=== PATIENT | female | born 1975 | race Caucasian/White ===

== ENCOUNTER → 2017-11-25 | Outpatient (CLI) | payer BC ==
[2017-11-25 13:31] LABS: ABSOLUTE EOSINOPHILS # (AUTO) 0.1 10^3/uL (0.0-0.6); ABSOLUTE LYMPHOCYTES (AUTO) 1.3 10^3/uL (0.5-4.7); ABSOLUTE MONOCYTES (AUTO) 0.4 10^3/uL (0.1-1.4); ABSOLUTE NEUT (AUTO) 2.4 10^3/uL (1.7-8.2); EOSINOPHILS % (AUTO) 2.6 % (0-6); HEMATOCRIT 40.5 % (36.0-47.0); HEMOGLOBIN 13.8 g/dL (12.0-15.5); LYMPHOCYTES % (AUTO) 30.5 % (13-45); MEAN CORPUSCULAR HEMOGLOBIN 29.4 pg (27.0-33.4); MEAN CORPUSCULAR VOLUME 87 fl (80-97); MONOCYTES % (AUTO) 8.8 % (3-13); PLATELET COUNT 347 10^3/uL (150-450); RED BLOOD COUNT 4.68 10^6/uL (3.72-5.28); RED CELL DISTRIBUTION WIDTH 14.9 % (11.5-14.0); SEGMENTED NEUTROPHILS % (AUTO) 57.1 % (42-78); TOTAL CELLS COUNTED % (AUTO) 100 %; WHITE BLOOD COUNT 4.3 10^3/uL (4.0-10.5)
[2017-11-25 14:16] LABS: ALANINE AMINOTRANSFERASE 12 U/L (9-52); ALBUMIN 3.9 g/dL (3.5-5.0); ALKALINE PHOSPHATASE 57 U/L (38-126); ANION GAP 12 (5-19); ASPARTATE AMINO TRANSFERASE 15 U/L (14-36); BILIRUBIN,DIRECT 0.3 mg/dL (0.0-0.4); BILIRUBIN,TOTAL 0.5 mg/dL (0.2-1.3); BLOOD UREA NITROGEN 10 mg/dL (7-20); CALCIUM 9.1 mg/dL (8.4-10.2); CARBON DIOXIDE 24 mmol/L (22-30); CHLORIDE 107 mmol/L (98-107); CHOLESTEROL 150.76 mg/dL (0-200); GLUCOSE 85 mg/dL (75-110); POTASSIUM 4.1 mmol/L (3.6-5.0); SODIUM 142.7 mmol/L (137-145); TRIGLYCERIDES 75 mg/dL (<150)
[2017-11-25 14:27] LABS: DIRECT LDL 85 mg/dL (<100)
== END ==
LOC: OD 11:42
PROVIDERS: ATTEND Internal Medicine
DX: J31.0 Chronic rhinitis (principal); R09.81 Nasal congestion; N95.1 Menopausal and female climacteric states
CPT/HCPCS: 36415; 80053; 80061; 82672; 83001; 83002; 84443; 85025

== ENCOUNTER → 2018-01-01 | Outpatient (CLI) | payer BC ==
--- NOTE | 2018-01-01 10:29 | RADIOLOGY REPORT (SQ) ---
EXAM DESCRIPTION: HIP RIGHT AP/LATERAL COMPLETED DATE/TIME: 01/01/2018 10:22 am REASON FOR STUDY: DJD S60.10XA CONTUSION OF UNSP FINGER WITH DAMAGE TO NAIL, INIT Right hip pain COMPARISON: None. NUMBER OF VIEWS: Two views. TECHNIQUE: AP and frog-leg view of the right hip. LIMITATIONS: None. FINDINGS: MINERALIZATION: Normal. RIGHT HIP: No fracture or dislocation. No worrisome bone lesions. No contour deformity. No joint sp ekaterina narrowing. OPPOSITE HIP: No fracture or dislocation. No worrisome bone lesions. SOFT TISSUES: No findings. OTHER: No other significant finding. IMPRESSION: NEGATIVE STUDY OF THE RIGHT HIP. NO EXPLANATION FOR PAIN. TECHNICAL DOCUMENTATION: JOB ID: [id number] [employer]- All Rights Reserved Reading location - IP/workstation name: [email or web address]
--- NOTE | 2018-01-01 10:43 | RADIOLOGY REPORT (SQ) ---
EXAM DESCRIPTION: HAND LEFT 3 VIEWS COMPLETED DATE/TIME: 01/01/2018 10:22 am REASON FOR STUDY: DJD,CONTUSION OF UNSP FINGER WITH DAMAGE TO NAIL, INIT ENCNTR S60.10XA CONTUSION OF UNSP FINGER WITH DAMAGE TO NAIL, INIT COMPARISON: None. EXAM PARAMETERS: NUMBER OF VIEWS: Three views. TECHNIQUE: AP, lateral and oblique radiographic images acquired of the left hand. LIMITATIONS: None. FINDINGS: MINERALIZATION: Normal. BONES: No acute fracture or dislocation. No worrisome bone lesions. JOINTS: No effusions. SOFT TISSUES: No soft tissue swelling. No foreign body. OTHER: No other significant finding. IMPRESSION: NEGATIVE STUDY OF THE LEFT HAND. NO RADIOGRAPHIC EVIDENCE OF ACUTE INJURY. TECHNICAL DOCUMENTATION: JOB ID: [id number] [employer]- All Rights Reserved Reading location - IP/workstation name: [email or web address]
== END ==
LOC: OD 10:04
PROVIDERS: ATTEND Internal Medicine
DX: S60.10XA Contusion of unspecified finger with damage to nail, initial encounter (principal); X58.XXXA Exposure to other specified factors, initial encounter; M19.90 Unspecified osteoarthritis, unspecified site

== ENCOUNTER → 2018-01-28 | Outpatient (CLI) | payer BC ==
--- NOTE | 2018-01-28 10:02 | RADIOLOGY REPORT (SQ) ---
EXAM DESCRIPTION: CT FACIAL AREA WITHOUT COMPLETED DATE/TIME: 01/28/2018 9:34 am REASON FOR STUDY: J31.0 CHRONIC RHINITIS J31.0 CHRONIC RHINITIS COMPARISON: None. TECHNIQUE: Noncontrasted images through the facial bones and orbits windowed for bone and soft tissu e. Additional coronal and sagittal reconstructed images reviewed. All images stored on PACS. All CT scanners at this facility use dose modulation, iterative reconstruction, and/or weight based d osing when appropriate to reduce radiation dose to as low as reasonably achievable (ALARA). [facility]: Dose Right [facility]: CareDose [facility]: Dose Right [facility]: Teradose 4D [facility]: Family Pet RADIATION DOSE: 44 mGy. LIMITATIONS: None. FINDINGS: FACIAL BONES: No fracture or bone lesion. ORBITS: Intact. No fracture. Symmetric intact globes and retroorbital soft tissues. PARANASAL SINUSES: There is mucous membrane thickening along the floor of the right maxillary sinus. Mucous membrane thickening narrows the outlet of the right maxillary sinus best shown on coronal penelope ges 18 through 20. Remainder of the paranasal sinuses are clear. Left maxillary sinus outlet patent. Mild rightward na neal septal deviation. No nasal polyps. SOFT TISSUES: No mass or edema. INFERIOR BRAIN: Limited view. No acute findings. OTHER: No other significant finding. IMPRESSION: Mucous membrane thickening floor right maxillary sinus with mild narrowing of the right maxillary sinus outlet from mucous membrane thickening. No air-fluid level suggest acute sinusitis a t time TECHNICAL DOCUMENTATION: JOB ID: [id number] Quality ID # [id number]: Final reports with documentation of one or more dose reduction techniques (e.g., Au tomated exposure control, adjustment of the mA and/or kV according to patient size, use of iterative reconstruction technique) 2010 [employer]- All Rights Reserved Reading location - IP/workstation name: [email or web address]
== END ==
LOC: RAD 09:13
PROVIDERS: ATTEND Internal Medicine
DX: J31.0 Chronic rhinitis (principal)
CPT/HCPCS: 70486

== ENCOUNTER 2018-07-15 16:11 | Emergency (ER) | payer OTHER, BC ==
--- NOTE | 2018-07-15 17:32 | ER Document Report ---
ED Medical Screen (RME) - General Chief Complaint: Numbness Stated Complaint: LEFT LEG SWELLING,TINGLING Time Seen by Provider: 07/15/18 17:16 Primary Care Provider: SIL LEE MD [Primary Care Provider] - Follow up as needed Mode of Arrival: Wheelchair Information source: Patient Notes: Patient presents to the emergency department with complaints of left right lower leg pain. She reports increased pain with walking today. Denies trauma. Denies recent trip. Denies history of DVT. Reports history of knee surgeries and back issues. She received injections into her back a few weeks ago. Patient reports her right leg is always numb and tingling because of her back issues. [facility] [place]. Right posterior lower leg is tender to palpation. No obvious swelling warmth or erythema I have greeted and performed a rapid initial assessment of this patient. A comprehensive ED assessment and evaluation of the patient, analysis of test results and completion of the medical decision making process will be conducted by additional ED providers. TRAVEL OUTSIDE OF THE [place] IN LAST 30 DAYS: No - Related Data Allergies/Adverse Reactions: amoxicillin [Amoxicillin] Allergy (Severe, Verified 07/04/15 10:15) hives,yeast infection latex [Latex] Allergy (Severe, Verified 07/04/15 10:15) Hives oxycodone HCl [From Tylox] Allergy (Severe, Verified 07/04/15 10:15) Hives Sulfa (Sulfonamide Antibiotics) Allergy (Verified 07/15/18 16:14) Past Medical History - Past Medical History Cardiac Medical History: Denies: Hx Coronary Artery Disease, Hx Heart Attack, Hx Hypertension Pulmonary Medical History: Reports: Hx Bronchitis - hx of Denies: Hx Asthma, Hx COPD, Hx Pneumonia Neurological Medical History: Denies: Hx Cerebrovascular Accident, Hx Seizures Renal/ Medical History: Denies: Hx Peritoneal Dialysis GI Medical History: Reports: Hx Gastroesophageal Reflux Disease Musculoskeltal Medical History: Denies Hx Arthritis Psychiatric Medical History: Reports: Hx Depression Past Surgical History: Reports: Hx Orthopedic Surgery, Hx Tonsillectomy, Hx Tubal Ligation - Immunizations Hx Diphtheria, Pertussis, Tetanus Vaccination: No Physical Exam - Vital signs Vitals: Temp Pulse Resp BP Pulse Ox 98.4 F 81 18 123/73 98 07/15/18 16:28 07/15/18 16:28 07/15/18 16:28 07/15/18 16:28 07/15/18 16:28 Course - Vital Signs Vital signs: Temp Pulse Resp BP Pulse Ox 98.4 F 81 18 123/73 98 07/15/18 16:28 07/15/18 16:28 07/15/18 16:28 07/15/18 16:28 07/15/18 16:28 Doctor's Discharge - Discharge Referrals: SIL LEE MD [Primary Care Provider] - Follow up as needed
[2018-07-16 00:05] LABS: ABSOLUTE BASOPHILS # (AUTO) 0.1 10^3/uL (0.0-0.2); ABSOLUTE EOSINOPHILS # (AUTO) 0.1 10^3/uL (0.0-0.6); ABSOLUTE LYMPHOCYTES (AUTO) 2.8 10^3/uL (0.5-4.7); ABSOLUTE MONOCYTES (AUTO) 0.6 10^3/uL (0.1-1.4); ABSOLUTE NEUT (AUTO) 4.2 10^3/uL (1.7-8.2); BASOPHILS % (AUTO) 0.9 % (0-2); EOSINOPHILS % (AUTO) 1.8 % (0-6); HEMATOCRIT 38.6 % (36.0-47.0); HEMOGLOBIN 13.2 g/dL (12.0-15.5); LYMPHOCYTES % (AUTO) 35.3 % (13-45); MEAN CORPUSCULAR HEMOGLOBIN 29.8 pg (27.0-33.4); MEAN CORPUSCULAR HGB CONC 34.3 g/dL (32.0-36.0); MEAN CORPUSCULAR VOLUME 87 fl (80-97); MONOCYTES % (AUTO) 8.1 % (3-13); PLATELET COUNT 366 10^3/uL (150-450); RED BLOOD COUNT 4.44 10^6/uL (3.72-5.28); RED CELL DISTRIBUTION WIDTH 13.9 % (11.5-14.0); SEGMENTED NEUTROPHILS % (AUTO) 53.9 % (42-78); TOTAL CELLS COUNTED % (AUTO) 100 %; WHITE BLOOD COUNT 7.8 10^3/uL (4.0-10.5)
[2018-07-16 00:24] LABS: ALANINE AMINOTRANSFERASE 24 U/L (9-52); ALBUMIN 3.8 g/dL (3.5-5.0); ALKALINE PHOSPHATASE 98 U/L (38-126); ANION GAP 8 (5-19); ASPARTATE AMINO TRANSFERASE 18 U/L (14-36); BILIRUBIN,DIRECT 0.2 mg/dL (0.0-0.4); BILIRUBIN,TOTAL 0.7 mg/dL (0.2-1.3); BLOOD UREA NITROGEN 8 mg/dL (7-20); CALCIUM 9.4 mg/dL (8.4-10.2); CARBON DIOXIDE 27 mmol/L (22-30); CHLORIDE 104 mmol/L (98-107); GLUCOSE 92 mg/dL (75-110); POTASSIUM 3.9 mmol/L (3.6-5.0); SODIUM 138.5 mmol/L (137-145)
[2018-07-16 00:36] VITALS: BP 117/72
--- NOTE | 2018-07-16 05:02 | ER Document Report ---
Entered by JOHANN SANTAMARIA SCRIBE 07/15/18 [id number] Acting as scribe for:ANDREA TERRELL MD ED General - General Chief Complaint: Numbness Stated Complaint: LEFT LEG SWELLING,TINGLING Time Seen by Provider: 07/15/18 17:16 Primary Care Provider: SIL LEE MD [Primary Care Provider] - Follow up as needed Mode of Arrival: Wheelchair Information source: Patient Notes: Patient is a 42 year old female with chronic back pain and BLE numbness was sent to the emergency department from [place] complaining of right lower leg pain and swelling onset 1.5 weeks ago. Patient states she has intermittent sharp and stabbing pains at her right knee and ankle and tightness around her calf. She states she was scheduled to have a brace fitted for her RLE but was unable to due so due to the fitting. Patient denies an increase in physical activity furt her stating she mostly sits with her legs elevated. She states she received an epidural injection in her back approximately 1 month ago. TRAVEL OUTSIDE OF THE [place] IN LAST 30 DAYS: No - Related Data Allergies/Adverse Reactions: amoxicillin [Amoxicillin] Allergy (Severe, Verified 07/16/18 00:07) hives,yeast infection latex [Latex] Allergy (Severe, Verified 07/16/18 00:07) Hives oxycodone HCl [From Tylox] Allergy (Severe, Verified 07/16/18 00:07) Hives Sulfa (Sulfonamide Antibiotics) Allergy (Verified 07/16/18 00:07) Past Medical History - General Information source: Patient - Social History Smoking Status: Never Smoker Cigarette use (# per day): No Chew tobacco use (# tins/day): No Smoking Education Provided: No Frequency of alcohol use: None Family History: Reviewed & Not Pertinent Patient has suicidal ideation: No Patient has homicidal ideation: No Pulmonary Medical History: Reports: Hx Bronchitis - hx of GI Medical History: Reports: Hx Gastroesophageal Reflux Disease Psychiatric Medical History: Reports: Hx Depression Past Surgical History: Reports: Hx Gynecologic Surgery - Bilateral oophorectomy, left salpingectomy, Hx Orthopedic Surgery, Hx Tonsillectomy, Hx Tubal Ligation - Immunizations Hx Diphtheria, Pertussis, Tetanus Vaccination: No Hx Pneumococcal Vaccination: 06/19/06 Review of Systems - Review of Systems Constitutional: No symptoms reported EENT: No symptoms reported Cardiovascular: No symptoms reported Respiratory: No symptoms reported Gastrointestinal: No symptoms reported Genitourinary: No symptoms reported Female Genitourinary: No symptoms reported Musculoskeletal: See HPI Skin: No symptoms reported Hematologic/Lymphatic: No symptoms reported Neurological/Psychological: No symptoms reported -: Yes All other systems reviewed and negative Physical Exam - Vital signs Vitals: Temp Pulse Resp BP Pulse Ox 98.4 F 81 18 123/73 98 07/15/18 16:28 07/15/18 16:28 07/15/18 16:28 07/15/18 16:28 07/15/18 16:28 - Notes Notes: GENERAL: Alert, interacts well. No acute distress. HEAD: Normocephalic, atraumatic. EYES: Pupils equal, round, and reactive to light. Extraocular movements intact. ENT: Oral mucosa moist, tongue midline. NECK: Full range of motion. Supple. Trachea midline. LUNGS: Clear to auscultation bilaterally, no wheezes, rales, or rhonchi. No respiratory distress. HEART: Regular rate and rhythm. No murmurs, gallops, or rubs. ABDOMEN: Soft, non-tender. Non-distended. Bowel sounds present in all 4 quadrants. No guarding, rigidity, or rebound. EXTREMITIES: Moves all 4 extremities spontaneously. Swelling to the right knee and calf compared to the left. Tender to palpation right anterior tibial surface and muscles and right ankle bilaterally. Both legs cool to touch, good capillary refill. NEUROLOGICAL: Alert and oriented x3. Normal speech. PSYCH: Normal affect, normal mood. SKIN: No rashes or lesions noted. Course - Re-evaluation Re-evalutation: 07/16/18 00:28 Lab work does not show suggest an infectious process, the d-dimer is not elevated. The venous Doppler did not show evidence of deep venous thrombosis or superficial venous thrombosis. - Vital Signs Vital signs: Temp Pulse Resp BP Pulse Ox 98.6 F 69 14 117/72 100 07/15/18 22:40 07/15/18 22:40 07/15/18 23:00 07/15/18 23:00 07/15/18 23:00 - Laboratory Result Diagrams: 07/15/18 23:55 07/15/18 23:55 Discharge - Discharge Clinical Impression: Pain and swelling of right lower leg Condition: Stable Disposition: HOME, SELF-CARE Additional Instructions: Your evaluation this evening did not show evidence of blood clots or an infectious process. You should try to elevate the leg and limit weightbearing as much as possible over the next few days. Follow-up with your primary care provider or your orthopedic doctor this week if not improving. RETURN TO THE EMERGENCY ROOM IF ANY NEW OR WORSENING SYMPTOMS. Referrals: SIL LEE MD [Primary Care Provider] - Follow up as needed I personally performed the services described in the documentation, reviewed and edited the documentation which was dictated to the scribe in my presence, and it accurately records my words and actions.
--- NOTE | 2018-07-16 08:07 | XCELERA REPORT ---
[address] [place] [facility] [address] Lower Extremity Venous Evaluation Procedure: Color flow and duplex imaging of the veins of the right lower extremity as well as the left Common Femoral vein. Right Sided Venous Evaluation Normal vessel filling wall to wall, compression and augmentation as well as Colour flow down to the infrageniculate veins. Left Sided Venous Evaluation The left common femoral vein is fully compressible. Spontaneous and phasic flow is present in the left common femoral vein. Interpretation Summary No duplex evidence of DVT or obstruction in the right lower extremity nor in the left Common Femoral vein. Name: ROSI FRANCOIS Age: 42 yrs Gender: Female : 1975 Patient Status: Preadmit Patient Location: ER Study Date: 07/15/2018 06:24 PM Reason For Study: RLL pain and swelling Ordering Physician: CHILO VASQUEZ Performed By: Kamilla Aldana : CHILO VASQUEZ > Saturnino Norris
== END 2018-07-16 00:47 | disposition home or self-care (01) ==
LOC: ER 16:11
DX: R22.0 Localized swelling, mass and lump, head (principal); M79.604 Pain in right leg; R20.2 Paresthesia of skin; G89.29 Other chronic pain; M54.9 Dorsalgia, unspecified; Z88.0 Allergy status to penicillin; Z91.040 Latex allergy status; Z88.2 Allergy status to sulfonamides; Z98.51 Tubal ligation status
CPT/HCPCS: 36415; 80053; 85025; 85379; 93971; 99284

== ENCOUNTER → 2018-07-18 | Outpatient (CLI) | payer OTHER, BC ==
[2018-07-18 13:04] LABS: FREE T3 4.42 pg/mL (2.77-5.27); FREE T4 (FREE THYROXINE) 1.01 ng/dL (0.78-2.19)
[2018-07-20 20:36] LABS: THYROID PEROXIDASE (TPO) AB 221 IU/mL (0-34)
[2018-07-21 07:19] LABS: THYROGLOBULIN AB SO <1.0 IU/mL (0.0-0.9)
[2018-07-21 07:22] LABS: ESTROGENS TOTAL 378 pg/mL (.)
== END ==
LOC: OD 11:25
PROVIDERS: ATTEND Internal Medicine
DX: E06.3 Autoimmune thyroiditis (principal); G43.909 Migraine, unspecified, not intractable, without status migrainosus
CPT/HCPCS: 36415; 82672; 83001; 83002; 84144; 84439; 84443; 84481; 86376

== ENCOUNTER → 2018-07-28 | Outpatient (CLI) | payer BC ==
--- NOTE | 2018-07-28 12:07 | RADIOLOGY REPORT (SQ) ---
EXAM DESCRIPTION: TIBIA FIBULA RIGHT COMPLETED DATE/TIME: 07/28/2018 11:19 am REASON FOR STUDY: PAIN IN RIGHT LEG M79.604 PAIN IN RIGHT LEG COMPARISON: None. NUMBER OF VIEWS: Two views. TECHNIQUE: Two radiographic images acquired of the right tibia and fibula to include the knee and an kle in at least one projection. LIMITATIONS: None. FINDINGS: MINERALIZATION: Normal. BONES: Post surgical changes in the distal medial femoral condyles and post surgical tracts in the p atella. No acute fracture or dislocation. SOFT TISSUES: Small calcified phleboliths anterior soft tissues right lower extremity. OTHER: No other significant finding. IMPRESSION: 1. No acute osseous findings. TECHNICAL DOCUMENTATION: JOB ID: [id number] [employer]: [employer]- All Rights Reserved Reading location - IP/workstation name: [email or web address]
== END ==
LOC: OD 10:58
PROVIDERS: ATTEND Internal Medicine
DX: M79.604 Pain in right leg (principal); M25.571 Pain in right ankle and joints of right foot

== ENCOUNTER → 2018-08-25 | Outpatient (CLI) | payer OTHER, BC ==
[2018-08-25 12:03] LABS: APPEARANCE,URINE CLEAR; BILIRUBIN,URINE NEGATIVE (NEGATIVE); COLOR,URINE YELLOW; GLUCOSE, URINE NEGATIVE (NEGATIVE); KETONES,URINE NEGATIVE (NEGATIVE); LEUKOCYTE ESTERASE,URINE NEGATIVE (NEGATIVE); NITRITE,URINE NEGATIVE (NEGATIVE); PROTEIN,URINE NEGATIVE (NEGATIVE); URINE SPECIFIC GRAVITY 1.016; UROBILINOGEN,URINE NEGATIVE mg/dL (<2.0)
[2018-08-25 12:21] LABS: C-REACTIVE PROTEIN 15.9 mg/L (<10.0); URIC ACID 5.6 mg/dL (2.5-7.0)
--- NOTE | 2018-08-25 12:30 | RADIOLOGY REPORT (SQ) ---
EXAM DESCRIPTION: CHEST PA/LATERAL COMPLETED DATE/TIME: 08/25/2018 11:50 am REASON FOR STUDY: CONTUSION OF RIGHT SHOULDER, SUBSEQUENT ENCOUNTER COMPARISON: 05/26/2015. EXAM PARAMETERS: NUMBER OF VIEWS: two views TECHNIQUE: Digital Frontal and Lateral radiographic views of the chest acquired. RADIATION DOSE: NA LIMITATIONS: none FINDINGS: LUNGS AND PLEURA: No opacities, masses or pneumothorax. No pleural effusion. MEDIASTINUM AND HILAR STRUCTURES: No masses or contour abnormalities. HEART AND VASCULAR STRUCTURES: Heart normal size. No evidence for failure. BONES: No acute findings. HARDWARE: None in the chest. OTHER: No other significant finding. IMPRESSION: NO SIGNIFICANT RADIOGRAPHIC FINDING IN THE CHEST. TECHNICAL DOCUMENTATION: JOB ID: [id number] [employer]- All Rights Reserved Reading location - IP/workstation name: [email or web address]
[2018-08-27 09:31] LABS: CYCLIC CITRUL PEPTIDE IGG/A AB 3 units (0-19)
== END ==
LOC: OD 11:24
PROVIDERS: ATTEND Internal Medicine
DX: E03.9 Hypothyroidism, unspecified (principal); M32.9 Systemic lupus erythematosus, unspecified; M06.9 Rheumatoid arthritis, unspecified; N39.0 Urinary tract infection, site not specified; M25.571 Pain in right ankle and joints of right foot; S40.011D Contusion of right shoulder, subsequent encounter; X58.XXXD Exposure to other specified factors, subsequent encounter
CPT/HCPCS: 36415; 71046; 81001; 84443; 84550; 86038; 86140; 86200; 86225; 86430

== ENCOUNTER → 2018-11-27 | Outpatient (CLI) | payer OTHER, BC | LOC: OD 10:10 | PROVIDERS: ATTEND Family Medicine | DX: E06.3 Autoimmune thyroiditis (principal); N95.1 Menopausal and female climacteric states | CPT/HCPCS: 36415; 82670; 83001; 83002; 84443 ==

== ENCOUNTER → 2019-04-09 | Outpatient (CLI) | payer BC ==
--- NOTE | 2019-04-09 20:33 | XCELERA REPORT ---
[address] [address] Transthoracic Echocardiogram Report Name: ROSI FRANCOIS Age: 43 yrs Gender: Female : 1975 Patient Status: Outpatient Patient Location: Study Date: 04/09/2019 10:16 AM Height: 62 in Weight: 197 lb BSA: 1.9 m2 Reason For Study: ABNORMAL EKG Ordering Physician: MIRIAM GREEN Performed By: Juan José Mena Interpretation Summary Small post pericardial effusion Mild calcific aortic root, not dilated. Mild nonstenotic calcific aortic valvular disease, with 3 cusps, no AR. Mild mitral annular calcium, No MVP, no MS, Mild AML calcified. Trace MR with no LA enlargement. No LVH, Normal LVEF visual 65%, with no LV diastolic dysfunction. Hypokinetic basal IVS only. No LV enlargement. Normal RH, not dilated, RVSP not calculated due to poor TR jet, perhaps RVSP 33 mmHg. Summary = Basal Inferoseptal hypokinesis. Normal LVEF. MMode/2D Measurements & Calculations RVDd: 2.7 cm LVIDd: 3.9 cm FS: 36.4 % Ao root diam: 2.9 cm IVSd: 0.80 cm LVIDs: 2.5 cm EDV(Teich): Ao root area: LVPWd: 0.90 cm 67.4 ml ESV(Teich): 6.4 cm2 22.4 ml LA dimension: 3.3 cm EF(Teich): 66.8 % LVLd ap4: 7.5 cm SV(MOD-sp4): EDV(MOD-sp4): 55.0 ml 82.0 ml LVLs ap4: 6.3 cm ESV(MOD-sp4): 27.0 ml EF(MOD-sp4): 67.1 % Doppler Measurements & Calculations MV E max deandre: MV P1/2t max deandre: Ao V2 max: LV V1 max P.6 cm/sec 88.8 cm/sec 116.7 cm/sec 3.6 mmHg MV A max deandre: MV P1/2t: 73.2 msec Ao max PG: LV V1 max: 58.9 cm/sec 5.5 mmHg 94.8 cm/sec MV E/A: 1.5 MVA(P1/2t): 3.0 cm2 MV dec slope: 355.1 cm/sec2 MV dec time: 0.20 sec PA V2 max: PI end-d deandre: TR max deandre: MV P1/2t-pr_phl: 69.3 cm/sec 108.6 cm/sec 273.0 cm/sec 73.2 msec PA max PG: TR max P.9 mmHg 29.8 mmHg I WMSI = 1.13 % Normal = 88 Segments Size X - Cannot 1 - Normal 2 - 3 - Akinetic4 - 1-2 small Interpret Hypokinetic Dyskinetic 3-5 moderate 5 - 6-14 large Aneurysmal 15-16 diffuse : MIRIAM GREEN Andre
== END ==
LOC: SP 09:50
PROVIDERS: ATTEND Family Medicine
DX: R94.31 Abnormal electrocardiogram [ECG] [EKG] (principal)
CPT/HCPCS: 93306

== ENCOUNTER → 2019-07-09 | Outpatient (CLI) | payer OTHER ==
--- NOTE | 2019-07-09 17:05 | WOMENS IMAGING REPORT ---
EXAM DESCRIPTION: 3D DX MAMMO RIGHT UNILAT; U/S BREAST UNILAT LIMITED IMAGES COMPLETED DATE/TIME: 07/09/2019 1:00 pm; 07/09/2019 1:23 pm REASON FOR STUDY: RT BREAST FOLLOW UP; 6 MONTH FOLLOW UP N63.11 UNSPECIFIED LUMP IN THE RIGHT BREAS T, UPPER OUTER JORDON COMPARISON: Multiple since 2011 EXAM PARAMETERS: Cone compression craniocaudal and mediolateral oblique images of the breast, right whole breast craniocaudad, 90 mediolateral, mediolateral oblique mammograms recorded using digital a cquisition and breast tomosynthesis. Right breast ultrasound was also performed. Read with the assistance of CAD. [facility] - [employer] Administrator Version 9.2 LIMITATIONS: None. FINDINGS: BREAST LATERALITY: Right MASSES: No suspicious masses. In the right breast laterally, two tiny less than 5 mm mammographic ma sses are present which were subsequently demonstrated to represent tiny breast cysts. CALCIFICATIONS: No new or suspicious calcifications. ARCHITECTURAL DISTORTION: None. ASYMMETRY: None noted. OTHER: No other significant findings. Right breast ultrasound: Ultrasound of the right breast demonstrates small breast parenchymal cysts at the 9 to 10 o'clock pos ition, measuring less than 5 mm in size. These correlate with the mammographic findings. IMPRESSION: No mammographic or sonographic evidence for malignancy right breast BREAST DENSITY: b scattered fibroglandular density tissue BIRAD: ASSESSMENT: 2 Benign findings. RECOMMENDATION: RECOMMENDED FOLLOW UP: Please continue yearly bilateral screening mammography NovemberDecember 2019 SPECIFIC INTERVENTION/IMAGING/CONSULTATION RECOMMENDED:No additional intervention/ imaging/consultati on needed at this time. COMMUNICATION:The negative/benign results were communicated to the patient. COMMENT: The patient has been notified of the results by letter per MQSA requirements. Additional no tification policies are in place for contacting patient with suspicious or incomplete findings. Quality ID #[id number]: The [employer] recommends an annual screening mammogram for women aged 40 years or over. This facility utilizes a reminder system to ensure that all patients receive reminder letters, and/or direct phone calls for appointments. This includes reminders for routine scr eening mammograms, diagnostic mammograms, or other Breast Imaging Interventions when appropriate. Th is patient will be placed in the appropriate reminder system. TECHNICAL DOCUMENTATION: FINDING NUMBER: (1) ASSESSMENT: (1) JOB ID: [id number] 2010 [employer]- All Rights Reserved Reading location - IP/workstation name: [id number]
--- NOTE | 2019-07-09 17:05 | WOMENS IMAGING REPORT ---
EXAM DESCRIPTION: 3D DX MAMMO RIGHT UNILAT; U/S BREAST UNILAT LIMITED IMAGES COMPLETED DATE/TIME: 07/09/2019 1:00 pm; 07/09/2019 1:23 pm REASON FOR STUDY: RT BREAST FOLLOW UP; 6 MONTH FOLLOW UP N63.11 UNSPECIFIED LUMP IN THE RIGHT BREAS T, UPPER OUTER JORDON COMPARISON: Multiple since 2011 EXAM PARAMETERS: Cone compression craniocaudal and mediolateral oblique images of the breast, right whole breast craniocaudad, 90 mediolateral, mediolateral oblique mammograms recorded using digital a cquisition and breast tomosynthesis. Right breast ultrasound was also performed. Read with the assistance of CAD. .[facility] - [employer] Programmer Version 9.2 LIMITATIONS: None. FINDINGS: BREAST LATERALITY: Right MASSES: No suspicious masses. In the right breast laterally, two tiny less than 5 mm mammographic ma sses are present which were subsequently demonstrated to represent tiny breast cysts. CALCIFICATIONS: No new or suspicious calcifications. ARCHITECTURAL DISTORTION: None. ASYMMETRY: None noted. OTHER: No other significant findings. Right breast ultrasound: Ultrasound of the right breast demonstrates small breast parenchymal cysts at the 9 to 10 o'clock pos ition, measuring less than 5 mm in size. These correlate with the mammographic findings. IMPRESSION: No mammographic or sonographic evidence for malignancy right breast BREAST DENSITY: b scattered fibroglandular density tissue BIRAD: ASSESSMENT: 2 Benign findings. RECOMMENDATION: RECOMMENDED FOLLOW UP: Please continue yearly bilateral screening mammography NovemberDecember 2019 SPECIFIC INTERVENTION/IMAGING/CONSULTATION RECOMMENDED:No additional intervention/ imaging/consultati on needed at this time. COMMUNICATION:The negative/benign results were communicated to the patient. COMMENT: The patient has been notified of the results by letter per MQSA requirements. Additional no tification policies are in place for contacting patient with suspicious or incomplete findings. Quality ID #[id number]: The [employer] recommends an annual screening mammogram for women aged 40 years or over. This facility utilizes a reminder system to ensure that all patients receive reminder letters, and/or direct phone calls for appointments. This includes reminders for routine scr eening mammograms, diagnostic mammograms, or other Breast Imaging Interventions when appropriate. Th is patient will be placed in the appropriate reminder system. TECHNICAL DOCUMENTATION: FINDING NUMBER: (1) ASSESSMENT: (1) JOB ID: [id number] 2010 [employer]- All Rights Reserved Reading location - IP/workstation name: [email or web address]
== END ==
LOC: WI 12:20
PROVIDERS: ATTEND Physician Assistant Medical
DX: N60.01 Solitary cyst of right breast (principal)
CPT/HCPCS: 76642; 77065